=== PATIENT | female | born 1970 | race Caucasian/White ===

== ENCOUNTER 2016-06-05 23:00 | Emergency (ER) | payer OTHER, SELFPAY ==
[2016-06-05 23:11] VITALS: BP 147/101
[2016-06-05] MEDS ORDERED: Penicillin V Potassium 500 MG Tab PO STA (23:52)
[2016-06-05] MEDS ORDERED: Naproxen 500 MG Tab PO STA (23:53)
--- NOTE | 2016-06-05 23:57 | EDM.PDOC ---
ED HPI ENT - General Chief Complaint: ENT Problem Stated Complaint: TOOTH PAIN Time Seen by Provider: 06/05/16 23:17 Source of Information: Reports: Patient, RN notes reviewed, Significant Other ( Boyfriend) History Limitations: Reports: No limitations - History of Present Illness INITIAL COMMENTS - FREE TEXT/NARRATIVE: The patient states that she has had an upper right toothache for the past 2 days. No recent injury, but she states that her tooth has been broken for about 3 years. She states that she has not been to a dentist, citing no insurance. She denies recent oral drainage, and denies recent fever. The patient states that she has been taking Tylenol, Advil, and aspirin, without relief. The patient's PCP is Saranya Rodriguez. The patient did not contact Ms. Rodriguez about this issue. - Related Data Allergies/ADRs: Allergies Allergy/AdvReac Type Severity Reaction Status Date / Time Penicillins Allergy Rash Verified 06/05/16 23:08 Home Meds: Home Meds ClonazePAM [KlonoPIN] 1 mg PO BID #12 tab 02/25/16 [Rx] Ibuprofen [Advil] 800 mg PO ONCALL PRN 06/05/16 [History] Naproxen 500 mg PO Q12H PRN #20 tablet 06/05/16 [Rx] Penicillin V Potassium [IJD: Penicillin V Potassium] 500 mg PO Q6H #40 tab 06/05 [Rx] Past Medical History Psychiatric History: Reports: Anxiety Oncologic (Cancer) History: Reports: Cervix - Past Surgical History HEENT Surgical History: Reports: Oral surgery ([place] teeth extraction) GI Surgical History: Reports: Appendectomy Female Surgical History: Reports: None Social & Family History - Family History Family Medical History: Noncontributory - Tobacco Use Smoking Status *Q: Current Every Day Smoker Years of Tobacco use: 32 Packs/Tins Daily: 0.5 - Caffeine Use Caffeine Use: Reports: Coffee - Alcohol Use Alcohol Use History: No Days Per Week of Alcohol Use: 0 - Recreational Drug Use Recreational Drug Use: Yes Recreational Drug Type: Reports: Marijuana/Hashish Recreational Drug Use Frequency: Not Used In Over 6 Months - Living Situation & Occupation Living situation: Reports: , alone Occupation: unemployed ED ROS ENT - Review of Systems Review Of Systems: See Below Constitutional: Reports: no symptoms HEENT: Reports: No symptoms Respiratory: Reports: No Symptoms Cardiovascular: Reports: No symptoms Endocrine: Reports: no symptoms GI/Abdominal: Reports: No symptoms : Reports: no symptoms Musculoskeletal: Reports: no symptoms Skin: Reports: no symptoms Neurological: Reports: No Symptoms Psychiatric: Reports: No symptoms Hematologic/Lymphatic: Reports: no symptoms Immunologic: Reports: no symptoms ED EXAM, ENT - Physical Exam Exam: See Below Exam Limited By: No limitations General Appearance: alert, WD/WN, mild distress (Whimpering - appears to be feigning distress), other (Disheveled) Eye Exam: bilateral eye: EOMI, normal inspection Ears: normal external exam, normal canal, hearing grossly normal, normal TMs Nose: normal inspection, normal mucousa, no blood Mouth/Throat: Normal inspection, Normal lips, Normal oropharynx, Other (Tooth # 1 absent. Teeth #2, 3, 4, 5 carious to the gingiva. Tooth #7 carious the gingiva. Tooth #9 carious to the gingiva. Teeth #12, 13, 14, 15 carious to the gingiva. Tooth #16 absent. Tooth #18 absent. Tooth #20 absent. Tooth # 26 with advanced decay. Tooth #29 absent. Teeth #30, 31 with advanced decay. Tooth #32 absent. No obvious infection or pointing, but with advanced dental decay, and infection is possible.) Head: atraumatic, normocephalic Neck: normal inspection, supple, non-tender, full range of motion. No: lymphadenopathy (L), lymphadenopathy (R) Course - Vital Signs Last Recorded V/S: Last Vital Signs Temp 36.0 C 06/05/16 23:09 Pulse 85 06/05/16 23:09 Resp 18 06/05/16 23:09 BP 147/101 H 06/05/16 23:09 Pulse Ox 96 06/05/16 23:09 - Orders/Labs/Meds Meds: Medications Discontinued Medications Generic Name Dose Route Start Last Admin Trade Name Jonyq PRN Reason Stop Dose Admin Naproxen 500 mg 06/05/16 23:53 Naprosyn PO 06/05/16 23:54 ONETIME STA Penicillin V Potassium 500 mg 06/05/16 23:52 Veetids PO 06/05/16 23:53 ONETIME STA - Re-Assessments/Exams Free Text/Narrative Re-Assessment/Exam: 06/05/16 23:58 The patient has advanced dental decay, with a possible infection. The patient does not actually have an allergy to penicillin - she has never taken it. She states that a number of her family members have allergies to penicillin, therefore she has always said she has an allergy. I recommended to the patient that we start her on oral penicillin, the drug of choice for oral infections, and prescription strength naproxen. I explained that I cannot prescribe an opioid, since this is a long-standing issue. The patient protested somewhat, but then agreed. Shortly afterwards, I was notified that the patient left the ED without receiving the penicillin or naproxen that I ordered, or waiting for her prescriptions. Clearly, the patient was drug seeking. Departure - Departure Time of Disposition: 23:55 Disposition: Eloped 07 Condition: fair Clinical Impression: Dental infection, Drug-seeking behavior Prescriptions: Naproxen 500 mg PO Q12H PRN #20 tablet PRN Reason: Pain Penicillin V Potassium [IJD: Penicillin V Potassium] 500 mg PO Q6H #40 tab Referrals: Carey Rodriguez NP [Primary Care Provider] - Forms: ED Department Discharge Additional Instructions: You were seen in the emergency room for upper right dental pain. On examination, you have advanced dental decay. There may be an infection. You have been started on the antibiotic penicillin. Take one tablet every 6 hours, as prescribed. Finish the entire prescription unless told otherwise by a dentist. You have been started on the pain medicine naproxen. Take one tablet every 12 hours, with food, as prescribed. It is IMPERATIVE that you see a dentist. This problem will not get solved with medicines. If any other problems, please do not hesitate to return to the ER.
== END 2016-06-05 23:58 | disposition left against medical advice (07) ==
LOC: JD.ED 23:00
DX: K04.7 Periapical abscess without sinus (principal); Z76.5 Malingerer [conscious simulation]; F17.210 Nicotine dependence, cigarettes, uncomplicated; F41.9 Anxiety disorder, unspecified; Z90.49 Acquired absence of other specified parts of digestive tract; Z85.41 Personal history of malignant neoplasm of cervix uteri; Z88.0 Allergy status to penicillin
CPT/HCPCS: 99282; 99283

== ENCOUNTER 2016-09-13 11:01 | Emergency (ER) | payer MEDICAID, OTHER ==
[2016-09-13 11:15] VITALS: BP 129/95
[2016-09-13] MEDS ORDERED: LORazepam 2 MG/ML MDV ONE ×2 (11:35→14:31)
[2016-09-13] MEDS ORDERED: LORazepam 2 MG/ML MDV IVPUSH ONE ×2 (11:41→14:28)
[2016-09-13] MEDS ORDERED: Iopamidol 612 MG/ML 100 ML Bottle IVPUSH ONE (11:49)
[2016-09-13] MEDS ORDERED: Sodium Chloride 0.9% 10 ML Syringe FLUSH PRN (11:49)
[2016-09-13] MEDS ORDERED: levETIRAcetam 1,000 MG in Sodium Chloride 0.9% 100 ML IV ONE (14:38)
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
--- NOTE | 2016-09-14 08:04 | CT ---
CT cervical spine Technique: Multiple axial sections were obtained from above C1 inferiorly to the bottom of T1. Reconstructed sagittal and coronal images were reviewed. Comparison: No previous cervical spine imaging is available. Findings: Minimal disc space narrowing noted at C6-C7. Small osteophyte seen off the anterior and inferior endplates of C4, C5 with more prominent osteophytes seen anteriorly at C6-C7. Minimal posterior osteophytes noted at C6-C7. Mastoid sinuses and middle ear cavities are clear. Posterior skull base is intact. Vertebral bodies and posterior arches are intact with no fracture being seen. No bony central or bony neural foraminal stenosis is seen. Mild degenerative change within the uncovertebral joints are noted at C7-T1 and T1-T2. Mild degenerative spurring noted within the uncovertebral joints at C6-C7 on the left side. Impression: 1. Mild degenerative change. 2. Nothing acute is identified on CT study of the cervical spine. Diagnostic code #2 I agree with preliminary report issued by [facility] ([facility] report finalized on 09/13/16, 2:34 PM Central Time)
--- NOTE | 2016-09-14 08:04 | CT ---
Head CT Technique: Multiple axial sections through the brain were obtained. Intravenous contrast was not utilized. Findings: Ventricles along the basal cisterns and sulci over the convexities are within normal limits for the patient's age. No abnormal parenchymal densities are seen. No evidence of intracranial hemorrhage. No midline shift or mass effect is seen. Bone window settings were reviewed which show minimal mucosal thickening within the frontal and ethmoid sinuses. Small retention cyst believed to be present inferiorly within the left maxillary sinus. These findings are felt to be incidental. No acute calvarial abnormality is seen. Impression: 1. Slight sinus findings which are felt to be incidental. 2. No acute intracranial abnormality is identified. Diagnostic code #2 I agree with preliminary report issued by [facility] ([facility] report finalized on 09/13/16, 2:28 PM Central Time)
--- NOTE | 2016-09-14 08:51 | CT ---
CT thoracic spine Technique: Multiple axial sections through the thoracic spine were obtained. Reconstructed coronal and sagittal images were reviewed. Findings: Minimal endplate osteophytes noted within the mid and lower thoracic spine. Minimal scoliosis is noted. Vertebral body heights are maintained. No fracture or subluxation is seen. No bony central or bony neural foraminal stenosis is seen. No focal disc herniation is appreciated. Impression: 1. Minimal endplate osteophytes within the mid and lower thoracic spine. 2. Minimal scoliosis. 3. Nothing acute is identified on CT study of the thoracic spine. Diagnostic code #2 I agree with preliminary report issued by [facility] ([facility] report finalized on 09/13/16, 2:40 PM Central Time)
--- NOTE | 2016-09-14 08:51 | CT ---
CT chest Technique: Multiple axial sections were obtained through the chest. Intravenous contrast was utilized. Comparison: No previous chest CT. Findings: Mediastinum and hilar regions show no adenopathy or mass. No pericardial thickening is seen. No axillary adenopathy is identified. Minimal dependent atelectasis incidentally noted posteriorly within both lungs. Lungs otherwise are clear. No pleural effusions or pneumothorax are seen. Bone window settings were reviewed which show scoliosis within the spine. No acute rib fracture is seen. Impression: 1. Mild scoliosis within the spine. 2. Nothing acute is identified on CT study of the chest. Diagnostic code #2 I agree with preliminary report issued by [facility] ([facility] report finalized on 09/13/16, 2:48 PM Central Time) CT abdomen and pelvis Technique: Multiple axial sections were obtained from above the dome of the diaphragm inferiorly through the pubic symphysis. Intravenous contrast was utilized. No oral contrast has been given. Comparison: No previous CT abdomen or pelvis exam. Findings: Liver shows no focal parenchymal abnormality. Spleen appears within normal limits. Adrenal glands show no nodule. Two small nonobstructing calculi are seen within the lower right kidney. Small nonobstructing calculus seen within the mid left kidney. Pancreas is within normal limits. Aorta shows no aneurysmal dilatation. No retroperitoneal adenopathy or mesenteric abnormalities are seen. No pelvic mass or adenopathy is seen. No free fluid or inflammatory change is seen within the abdomen or within the pelvis. Mild increased stool noted within the right and transverse colon with lesser stool within the descending colon. There is some fluid within small bowel which is felt to be incidental. Bone window settings were reviewed which show scoliosis within the spine. Degenerative disc change with vacuum phenomena noted at the L2-L3 and L3-L4 levels with anterior osteophytes. Impression: 1. Small nonobstructing calculi within both kidneys. 2. Mild increased stool within portions of the right and transverse colon. 3. Fluid within small bowel which is felt to be incidental. 4. Nothing acute is appreciated on CT study of the abdomen and pelvis. Diagnostic code #2 I agree with preliminary report issued by [facility] ([facility] report finalized on 09/13/16, 2:52 PM Central Time)
--- NOTE | 2016-09-14 08:51 | CT ---
CT lumbar spine Technique: Multiple axial sections through the lumbar spine were obtained. Reconstructed coronal and sagittal images were reviewed. Scoliosis is seen. Disc space narrowing noted at L2-L3. Circumferential disc bulge is seen with posterior disc maintaining a concave margin. Disc space narrowing noted at L3-L4. Slight vacuum disc phenomena is seen. Diffuse circumferential disc bulge is seen. Posterior disc maintains a slight concave margin. No fracture or abnormal subluxation is seen. Impression: 1. Degenerative change and scoliosis. 2. Nothing acute is identified on CT study of the lumbar spine. Diagnostic code #2 I agree with preliminary report issued by [facility] ([facility] report finalized on 09/13/16, 3:06 PM Central Time)
== END 2016-09-13 16:30 ==
LOC: JD.ED 11:01
DX: R56.9 Unspecified convulsions (principal); I10 Essential (primary) hypertension; F41.9 Anxiety disorder, unspecified; Z90.49 Acquired absence of other specified parts of digestive tract; Z88.0 Allergy status to penicillin
CPT/HCPCS: 36415; 51701; 70450; 71260; 72125; 72128; 72131; 74177; 80053; 80306; 81001; 81025; 85025; 85610; 85730; 93005; 96365; 96375; 96376; 99285; J1953; J2060; J7030; J7050; Q9967; 99284

== ENCOUNTER 2018-07-26 12:51 | Emergency (ER) | payer OTHER ==
[2018-07-26] MEDS ORDERED: Ondansetron 4 MG/2 ML SDV IVPUSH ONE (13:04)
[2018-07-26] MEDS ORDERED: Sodium Chloride 0.9% 10 ML Syringe FLUSH PRN (13:04)
[2018-07-26] MEDS ORDERED: Sodium Chloride 0.9% 1,000 ML IV SCH (13:15)
--- NOTE | 2018-07-26 13:43 | EDM.PDOC ---
ED HPI GENERAL MEDICAL PROBLEM - General Chief Complaint: Neurological Problem Stated Complaint: UNRESPONSIVE Time Seen by Provider: 07/26/18 12:53 Source of Information: Reports: Patient, RN Notes Reviewed - History of Present Illness INITIAL COMMENTS - FREE TEXT/NARRATIVE: 48-year-old female has been brought here by a friend, possibly a cousin for altered mental status, head, neck, abdominal discomfort status post fall. Patient does have altered mental status, speech is slurred so history quite difficult to obtain. However she does indicate that she has taken about " seven 2 mg Ativan sometime in the last couple of hours or so". She also is reported to have "fallen down some stairs". When asked why she took the Ativan she states she was having seizures. When asked how she knows that she states because of "how I felt this morning". She states she does have a headache. When asked about her neck she states she does have neck pain. She she also has chest pain and left upper abdominal pain. She denies alcohol ingestion. She states "I do not do drugs". - Related Data Allergies Allergy/AdvReac Type Severity Reaction Status Date / Time Penicillins Allergy Cannot Verified 07/26/18 12:54 Remember Home Meds: Home Meds . [Unable to Verify Home Med List] 07/26/18 [History] ED ROS GENERAL - Review of Systems Review Of Systems: See Below HEENT: Reports: Other Respiratory: Denies: Shortness of Breath (Headache) Cardiovascular: Reports: Chest Pain (Mild) GI/Abdominal: Reports: Abdominal Pain (Left upper abdomen), Nausea. Denies: Vomiting Musculoskeletal: Reports: Neck Pain Neurological: Reports: Dizziness, Headache, Weakness (Generalized) Psychiatric: Reports: Other (Altered mental status, drowsiness) - Physical Exam Exam: See Below General Appearance: Other (Drowsy, under the influence of sedating medication or substance) Eye Exam: Bilateral Eye: PERRL (Pupils are both moderately constricted, equal) Throat/Mouth: Normal Inspection Head Exam: Atraumatic. No: Scalp Swelling, Facial Swelling Neck: Supple Respiratory/Chest: No Respiratory Distress, Lungs Clear, Normal Breath Sounds Cardiovascular: Regular Rate, Rhythm Neuro Exam (Abbreviated): Other (Drowsy, does make eye contact when spoken to, does answer simple questions and does obey simple commands) Extremities: Normal Inspection, Normal Range of Motion Skin Exam: Warm, Dry, Normal Color Course - Vital Signs Last Recorded V/S: Last Vital Signs Temp 96.8 F 07/26/18 12:54 Pulse 86 07/26/18 15:20 Resp 18 07/26/18 15:20 BP 126/84 07/26/18 15:20 Pulse Ox 92 L 07/26/18 15:20 - Orders/Labs/Meds Orders: Active Orders 24 hr Category Date Time Status EKG 12 Lead [EKG Documentation Completion] [RC] STAT Care 07/26/18 13:04 Active Peripheral IV Care [RC] . DIRECTED Care 07/26/18 13:05 Active Chest Abdomen Pelvis w Cont [CT] Stat Exams 07/26/18 13:06 Taken Head wo Cont [CT] Stat Exams 07/26/18 13:05 Taken Peripheral IV Insertion Adult [OM.PC] Stat Oth 07/26/18 13:04 Ordered Labs: Laboratory Tests 07/26/18 07/26/18 07/26/18 Range/Units 12:45 12:45 12:45 WBC 6.20 (3.98-10.04) K/mm3 RBC 4.90 (3.98-5.22) M/mm3 Hgb 15.2 (11.2-15.7) gm/L Hct 46.6 H (34.1-44.9) % MCV 95.1 H (79.4-94.8) fl MCH 31.0 (25.6-32.2) pg MCHC 32.6 (32.2-35.5) g/dl RDW Std Deviation 42.6 (36.4-46.3) fL Plt Count 274 (182-369) K/mm3 MPV 9.8 (9.4-12.3) fl Neut % (Auto) 53.3 (34.0-71.1) % Lymph % (Auto) 30.2 (19.3-51.7) % Holmes % (Auto) 12.4 (4.7-12.5) % Eos % (Auto) 3.4 (0.7-5.8) Baso % (Auto) 0.5 (0.1-1.2) % Neut # (Auto) 3.31 (1.56-6.13) K/mm3 Lymph # (Auto) 1.87 (1.18-3.74) K/mm3 Holmes # (Auto) 0.77 H (0.24-0.36) K/mm3 Eos # (Auto) 0.21 (0.04-0.36) K/mm3 Baso # (Auto) 0.03 (0.01-0.08) K/mm3 Sodium 139 (136-145) mEq/L Potassium 4.1 (3.5-5.1) mEq/L Chloride 103 (98-107) mEq/L Carbon Dioxide 28 (21-32) mEq/L Anion Gap 12.1 (5-15) BUN 12 (7-18) mg/dL Creatinine 0.9 (0.55-1.02) mg/dL Est Cr Clr Drug Dosing TNP Estimated GFR (MDRD) > 60 (>60) mL/min BUN/Creatinine Ratio 13.3 L (14-18) Glucose 105 (74-106) mg/dL Calcium 9.3 (8.5-10.1) mg/dL Total Bilirubin 0.5 (0.2-1.0) mg/dL AST 21 (15-37) U/L ALT 35 (14-59) U/L Alkaline Phosphatase 75 (46-116) U/L Total Protein 8.0 (6.4-8.2) g/dl Albumin 3.7 (3.4-5.0) g/dl Globulin 4.3 gm/dL Albumin/Globulin Ratio 0.9 L (1-2) HCG, Qual (NEGATIVE) HCG, Quant 1.0 mIU/mL Urine Opiates Screen (ZGWVIT=289) Ur Buprenorphine Scrn (CUTOFF=10) Ur Oxycodone Screen (ESK3BP=552) Urine Methadone Screen (FIXIHZ=853) Ur Propoxyphene Screen (JFFSTN=988) Ur Barbiturates Screen (QQVHTE=783) Ur Tricyclics Screen (URLFCU=340) Ur Phencyclidine Scrn (CUTOFF=25) Ur Amphetamine Screen (GXFMGC=766) U Methamphetamines Scrn (HDDXEN=329) U Benzodiazepines Scrn (CXRFCE=389) U Cocaine Metab Screen (CBDXZO=690) U Marijuana (THC) Screen (CUTOFF=50) Ethyl Alcohol 0.00 (0.00) gm% 07/26/18 07/26/18 Range/Units 12:45 15:58 WBC (3.98-10.04) K/mm3 RBC (3.98-5.22) M/mm3 Hgb (11.2-15.7) gm/L Hct (34.1-44.9) % MCV (79.4-94.8) fl MCH (25.6-32.2) pg MCHC (32.2-35.5) g/dl RDW Std Deviation (36.4-46.3) fL Plt Count (182-369) K/mm3 MPV (9.4-12.3) fl Neut % (Auto) (34.0-71.1) % Lymph % (Auto) (19.3-51.7) % Holmes % (Auto) (4.7-12.5) % Eos % (Auto) (0.7-5.8) Baso % (Auto) (0.1-1.2) % Neut # (Auto) (1.56-6.13) K/mm3 Lymph # (Auto) (1.18-3.74) K/mm3 Holmes # (Auto) (0.24-0.36) K/mm3 Eos # (Auto) (0.04-0.36) K/mm3 Baso # (Auto) (0.01-0.08) K/mm3 Sodium (136-145) mEq/L Potassium (3.5-5.1) mEq/L Chloride (98-107) mEq/L Carbon Dioxide (21-32) mEq/L Anion Gap (5-15) BUN (7-18) mg/dL Creatinine (0.55-1.02) mg/dL Est Cr Clr Drug Dosing Estimated GFR (MDRD) (>60) mL/min BUN/Creatinine Ratio (14-18) Glucose (74-106) mg/dL Calcium (8.5-10.1) mg/dL Total Bilirubin (0.2-1.0) mg/dL AST (15-37) U/L ALT (14-59) U/L Alkaline Phosphatase (46-116) U/L Total Protein (6.4-8.2) g/dl Albumin (3.4-5.0) g/dl Globulin gm/dL Albumin/Globulin Ratio (1-2) HCG, Qual Negative (NEGATIVE) HCG, Quant mIU/mL Urine Opiates Screen Negative (LABASH=702) Ur Buprenorphine Scrn Negative (CUTOFF=10) Ur Oxycodone Screen Negative (UPR2UR=995) Urine Methadone Screen Negative (QDTAEO=991) Ur Propoxyphene Screen Negative (PVYFOW=356) Ur Barbiturates Screen Negative (CVSEZS=161) Ur Tricyclics Screen Negative (CKFYTG=733) Ur Phencyclidine Scrn Negative (CUTOFF=25) Ur Amphetamine Screen Negative (KIVAAG=080) U Methamphetamines Scrn Presumptive positive H (RARZQP=139) U Benzodiazepines Scrn Presumptive positive H (FZNRCC=147) U Cocaine Metab Screen Negative (DJJKEF=934) U Marijuana (THC) Screen Presumptive positive H (CUTOFF=50) Ethyl Alcohol (0.00) gm% Meds: Medications Discontinued Medications Generic Name Dose Route Start Last Admin Trade Name Freq PRN Reason Stop Dose Admin Acetaminophen 975 mg 07/26/18 17:30 07/26/18 17:33 Tylenol PO 07/26/18 17:31 975 mg NOW ONE Administration Sodium Chloride 1,000 mls @ 999 mls/hr 07/26/18 13:15 07/26/18 13:50 Normal Saline IV 999 mls/hr ONETIME ALISHA Administration Sodium Chloride Confirm 07/26/18 15:47 07/26/18 15:52 Normal Saline Administered 07/26/18 15:48 Not Given Dose 100 mls @ as directed .ROUTE .STK-MED ONE Levetiracetam 500 mg/ Sodium 105 mls @ 400 mls/hr 07/26/18 15:45 07/26/18 15: 53 Chloride IV 07/26/18 16:00 400 mls/hr ONETIME STA Administration Levetiracetam 500 mg/ Sodium 105 mls @ 400 mls/hr 07/26/18 16:38 07/26/18 16: 47 Chloride IV 07/26/18 16:52 400 mls/hr ONETIME ONE Administration Iohexol 100 ml 07/26/18 15:22 07/26/18 15:36 Omnipaque-300 IVPUSH 07/26/18 15:23 100 ml ONETIME ONE Administration Ketorolac Tromethamine 30 mg 07/26/18 17:30 07/26/18 17:34 Toradol IVPUSH 30 mg ONETIME ALISHA Administration Levetiracetam Confirm 07/26/18 15:46 07/26/18 15:52 Keppra Administered 07/26/18 15:47 Not Given Dose 500 mg .ROUTE .STK-MED ONE Ondansetron HCl 4 mg 07/26/18 13:04 07/26/18 13:51 Zofran IVPUSH 07/26/18 13:05 4 mg ONETIME ONE Administration Sodium Chloride 10 ml 07/26/18 13:04 07/26/18 13:51 Saline Flush FLUSH 10 ml ASDIRECTED PRN Administration Keep Vein Open - Re-Assessments/Exams Free Text/Narrative Re-Assessment/Exam: 07/26/18 15:55. Lab work did come back as documented. At first she was restless , agitated and than she was quite drowsy for a period of time. She was allowed to sleep while labs were being obtained and CT was done later after she started becoming more alert and less agitated. Radiologist did call from the [facility] stating that there was a lenticular hypodensity in the medulla 5 mm in long axis. "This could be calcification or trumatic axonal stretch injury". However at that time patient was waking up and began conversing appropriately. Radiologist stated that if this was truly a traumatic finding she would have severe altered mental status to either comatose or near comatose state. CT of neck chest abdomen all came back normal. See radiology reports for details. Patient was observed for quite a long period of time. ETOH did come back negative. Urine drug screen came back positive for meth, amphetamines, marijuana and benzodiazepines. She did have an episode where she kind of "stiffened and then became severely nauseated and did vomit. She then slept for a very short time and then was back to normal alertness. After that episode she was given Keppra 500 mg IV followed by a further 500 mg dose. She continued to show normal mental status, was drinking fluids, ate some Jell-O asking to go home. Therefore she was discharged ambulatory from the ED. Discharge instructions as documented. Departure - Departure Time of Disposition: 17:45 Disposition: Home, Self-Care 01 Condition: Fair Clinical Impression: Pain, dental Fall Qualifiers: Encounter type: initial encounter Qualified Code(s): W19.XXXA - Unspecified fall, initial encounter Altered mental status Qualifiers: Altered mental status type: unspecified Qualified Code(s): R41.82 - Altered mental status, unspecified - Discharge Information Instructions: Fall Prevention in the Home, Adult, Hemg-[facility]-Lv[facility], Illegal Drug Use Information, Adult Referrals: PCP,None [Primary Care Provider] - Forms: ED Department Discharge Additional Instructions: Your drug screen was positive for multiple street drugs. It is likely that they are contributing to the various symptoms that you have had today. Avoid alcohol and avoid further street drugs. Follow-up with Carey Rodriguez as needed. - My Orders Last 24 Hours: My Active Orders 07/26/18 13:04 EKG 12 Lead [EKG Documentation Completion] [RC] STAT Peripheral IV Insertion Adult [OM.PC] Stat 07/26/18 13:05 Peripheral IV Care [RC] . DIRECTED Head wo Cont [CT] Stat 07/26/18 13:06 Chest Abdomen Pelvis w Cont [CT] Stat - Assessment/Plan Last 24 Hours: My Active Orders 07/26/18 13:04 EKG 12 Lead [EKG Documentation Completion] [RC] STAT Peripheral IV Insertion Adult [OM.PC] Stat 07/26/18 13:05 Peripheral IV Care [RC] . DIRECTED Head wo Cont [CT] Stat 07/26/18 13:06 Chest Abdomen Pelvis w Cont [CT] Stat
[2018-07-26] MEDS ORDERED: Iohexol 647 MG/ML 100 ML Bottle IVPUSH ONE (15:22)
[2018-07-26] MEDS ORDERED: levETIRAcetam 500 MG in Sodium Chloride 0.9% 100 ML IV STA (15:45)
[2018-07-26] MEDS ORDERED: levETIRAcetam 500 MG/5 ML SDV ONE (15:46)
[2018-07-26] MEDS ORDERED: Sodium Chloride 0.9% 100 ML ONE (15:47)
[2018-07-26] MEDS ORDERED: levETIRAcetam 500 MG in Sodium Chloride 0.9% 100 ML IV ONE (16:38)
[2018-07-26] MEDS ORDERED: Ketorolac 30 MG/ML SDV IVPUSH SCH (17:30)
[2018-07-26] MEDS ORDERED: Acetaminophen 325 MG Tab PO ONE (17:30)
[2018-07-26 18:09] VITALS: BP 126/84
--- NOTE | 2018-07-27 12:45 | CT ---
Head CT Technique: Multiple axial sections through the brain were obtained. Intravenous contrast was not utilized. Comparison: No prior intracranial imaging is present. Findings: Ventricles along with basal cisterns and sulci over the convexities are within normal limits for the patient's age. Small focal area of hyperdensity is noted within the left side of the medulla. Findings are suspicious for small brainstem hemorrhage. There is also low density noted within the medulla which is less specific for real finding versus artifact. No other abnormal parenchymal densities are seen. No evidence of intracranial hemorrhage. No midline shift or mass effect is seen. Bone window settings were reviewed which shows no acute calvarial abnormality. Visualized sinuses showed nothing acute. Impression: 1. Findings suspicious for small brainstem hemorrhage as well as equivocal low density edema. Recommend follow-up head CT to see if this finding is persistent. 2. No additional abnormality is seen on noncontrast head CT exam. Diagnostic code #5 Agree with preliminary report issued by [facility] ([facility] preliminary report dictated on 07/26/18, 5:10 PM Central Time)
--- NOTE | 2018-07-27 19:35 | CT ---
CT chest Technique: Multiple axial sections were obtained from above the lung apices inferiorly through the lung bases. Intravenous contrast was utilized. Comparison: No prior chest imaging. Findings: Mediastinum and hilar regions show no adenopathy or mass. No pericardial thickening is seen. No axillary adenopathy is seen. Lungs are clear. No acute parenchymal change is seen within either side of the chest. Bone window settings were reviewed which show no discrete acute osseous abnormality. Impression: 1. Nothing acute is seen on CT study of the chest. Diagnostic code #1 Agree with preliminary report issued by [facility] ([email or web address] preliminary report dictated on 07/26/18, 5:22 PM Central Time) CT abdomen and pelvis Technique: Multiple axial sections were obtained from above the dome of the diaphragm inferiorly through the pubic symphysis. Intravenous contrast was utilized. No oral contrast has been given. Comparison: No prior intracranial imaging. Findings: Liver contains no focal abnormality. Spleen appears within normal limits. Adrenal glands show no nodule. Pancreas is within normal limits. Gallbladder contains no calcified gallstones. Kidneys show symmetric contrast enhancement without hydronephrosis or mass. Aorta shows no aneurysm. No retroperitoneal adenopathy or mesenteric abnormalities are seen. No pelvic mass or adenopathy is seen. Delayed images show contrast within the bladder Slight increased stool is noted within the colon. Bone window settings were reviewed which show scoliosis within the lumbar spine. Disc space narrowing is seen within the lumbar spine at L1-L2 and L2-L3. No acute osseous abnormality is appreciated. Impression: 1. Incidental findings as noted above. Nothing acute is appreciated on CT study of the abdomen and pelvis. Diagnostic code #2 I agree with preliminary report issued by [facility] ([email or web address] preliminary report dictated on 07/26/18, 5:22 PM Central Time)
== END 2018-07-26 17:55 | disposition home or self-care (01) ==
LOC: MERGE 12:51 → JD.ED 12:51 → EDBD 12:51 → JD.ED 17:55
DX: R41.82 Altered mental status, unspecified (principal); K08.89 Other specified disorders of teeth and supporting structures; Z88.0 Allergy status to penicillin; W19.XXXA Unspecified fall, initial encounter
CPT/HCPCS: 36415; 70450; 71260; 74177; 80053; 80306; 84702; 84703; 85025; 93005; 96361; 96365; 96366; 96375; 99285; A9270; G0480; J1885; J1953; J2405; J7030; J7040; Q9967; 93010; 99283

== ENCOUNTER 2018-12-19 12:23 | Emergency (ER) | payer MEDICAID | END 2018-12-19 12:35 | disposition left against medical advice (07) | LOC: JD.ED 12:23 | DX: Z53.21 Procedure and treatment not carried out due to patient leaving prior to being seen by health care provider (principal) ==

== ENCOUNTER 2019-09-30 11:28 | Emergency (ER) | payer MEDICAID ==
[2019-09-30 11:36] VITALS: BP 130/81; PULSE 88
[2019-09-30] MEDS ORDERED: LORazepam 2 MG/ML SDV IVPUSH ONE (11:50)
[2019-09-30] MEDS ORDERED: HYDROmorphone 0.5 MG/0.5 ML Syringe IVPUSH ONE ×2 (11:51→12:49)
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
--- NOTE | 2019-09-30 13:21 | CT ---
Head CT Technique: Multiple axial sections through the brain were obtained. Intravenous contrast was not utilized. Comparison: Prior head CT study of 08/30/18. Findings: Ventricles along with basal cisterns and sulci over convexities appear within normal limits for the patient's age. No abnormal parenchymal densities are seen. No evidence of intracranial hemorrhage. No midline shift or mass effect is seen. Bone window settings were reviewed which shows no acute calvarial finding. There is near complete opacification of the left maxillary sinus. Other visualized sinuses show nothing acute. Mastoid sinuses show nothing acute. Impression: 1. Near complete opacified left maxillary sinus. This is an interval change from prior study but could represent chronic sinusitis. 2. No acute intracranial abnormality is otherwise seen. Diagnostic code #2 Study was dictated in MDT
--- NOTE | 2019-09-30 13:24 | CT ---
CT cervical spine multiple axial sections were obtained from above C1 inferiorly to the bottom of T2. Reconstructed sagittal and coronal images were reviewed. Comparison: Prior cervical spine study of 09/13/16. Findings: Vertebral body heights are maintained. Mild disc space narrowing is noted at C6-C7 with posterior osteophytes and anterior osteophytes at this level. Vertebral bodies and posterior arches are intact. Moderate bilateral neural foraminal stenosis is noted at C6-C7. Other neural foramina are patent. Scattered degenerative apophyseal change is noted which is more prominent on the left side. No fracture is appreciated. Slight scoliosis is present. Impression: 1. Mild degenerative change as noted above. Mild scoliosis is seen. 2. No acute fracture or abnormal subluxation is appreciated. Diagnostic code #2 Study was dictated in MDT
--- NOTE | 2019-09-30 13:27 | CR ---
Left shoulder: 3 views left shoulder were obtained. Comparison: No previous shoulder study. Glenohumeral joint and acromioclavicular joint appears unremarkable. No fracture, dislocation or other bony abnormality is appreciated. Impression: 1. No abnormality is identified on 3 view left shoulder study. Diagnostic code #1 Study was dictated in MDT
== END 2019-09-30 14:19 | disposition home or self-care (01) ==
LOC: JD.ED 11:28
DX: S49.92XA Unspecified injury of left shoulder and upper arm, initial encounter (principal); G40.909 Epilepsy, unspecified, not intractable, without status epilepticus; I10 Essential (primary) hypertension; F41.9 Anxiety disorder, unspecified; Z88.0 Allergy status to penicillin; Z79.899 Other long term (current) drug therapy; W10.9XXA Fall (on) (from) unspecified stairs and steps, initial encounter
CPT/HCPCS: 70450; 72125; 73030; 96374; 96375; 96376; 99285; J1170; J2060; 99284

== ENCOUNTER 2021-04-29 19:48 | Emergency (ER) | payer MEDICAID ==
[2021-04-29 20:06] VITALS: BP 145/92; PULSE 82
[2021-04-29] MEDS ORDERED: HYDROmorphone 0.5 MG/0.5 ML Syringe IM ONE (20:07)
== END 2021-04-29 21:36 | disposition home or self-care (01) ==
LOC: JD.ED 19:48
DX: M25.562 Pain in left knee (principal); G89.11 Acute pain due to trauma; Z88.0 Allergy status to penicillin
CPT/HCPCS: 73564; 96372; 99283; J1170; 99284

== ENCOUNTER 2022-08-26 00:21 | Emergency (ER) | payer MEDICAID ==
[2022-08-26 00:31] VITALS: BP 128/86; PULSE 109
[2022-08-26] MEDS ORDERED: Ketorolac 60 MG/2 ML SDV IM ONE (00:37)
== END 2022-08-26 01:07 | disposition home or self-care (01) ==
LOC: JD.ED 00:21
DX: M25.511 Pain in right shoulder (principal); Z88.0 Allergy status to penicillin
CPT/HCPCS: 96372; 99284; J1885; 99283